=== PATIENT | male | born 1995 | race Hispanic/Latino ===

== ENCOUNTER 2024-05-12 21:41 | Emergency (ER) | payer SELFPAY ==
[~2024-05-12] VITALS: Ht 182.9 cm; Wt 113.4 kg
[2024-05-12 22:36] LABS: RAPID GROUP A STREP negative (NEGATIVE)
[2024-05-12 22:46] LABS: COVID19 (SARS ANTIGEN RAPID) PRESUMPTIVE NEGATIVE (NEGATIVE); INFLUENZA TYPE A Negative For Type A (NEGATIVE); INFLUENZA TYPE B Negative For Type B (NEGATIVE)
[2024-05-12 23:09] VITALS: BP 142/87; PULSE 72; RESP 17; TEMP 98.4; O2SAT 96
[2024-05-12] MEDS ORDERED: METH4TAB3 PO (23:10)
[2024-05-12] MEDS ORDERED: BENZ-39 PO (23:10)
[2024-05-12] MEDS ORDERED: ALBUHFA IH (23:10)
== END 2024-05-12 23:16 | disposition home or self-care (01) ==
LOC: EDH 21:41
DX: J06.9 Acute upper respiratory infection, unspecified (principal); B97.89 Other viral agents as the cause of diseases classified elsewhere; J45.909 Unspecified asthma, uncomplicated; Z88.0 Allergy status to penicillin; Z20.822 Contact with and (suspected) exposure to COVID-19
CPT/HCPCS: 71045; 87426; 87804; 87880